=== PATIENT | female | born 1950 | race Caucasian/White ===

== ENCOUNTER → 2016-03-16 | Outpatient (REF) | payer OTHER ==
[~2016-03-16] MED LIST: /FENT75PA; ACCUPRIL20 PO; ACCUPRIL40 PO; ASP81 PO; ASPI81TA3; AUGXR7 PO; CAHNTIXC PO; CALCARB; CALCWAF4; CELEBRE200 PO; CHAN0.5P PO; CLEBREX; COLCHI0.6 PO; CYMBALTA60 PO; DIFLUC150 PO; FOLI1TAB; FURO40TA2; GABA600T3; HABITROL2 TOPICAL; LASIX20 PO; LIDODERM; LIDODERM PATCH; LISI40TA; LISINOPR40 PO; LOVAZA; LOVAZA PO; LYRICA100 PO; LYRICA50 PO; NASONEX NASAL; NEURONTIN3 PO; NEURONTIN6 PO; NIASPAN500 PO; NICODERM TOPICAL; NICODERM14 TOPICAL; OMACOR PO; PLENDIL10 PO; PREMARI0.9 PO; PRIL20CA; PRILOSEC20 PO; RANI150C; SENO8.6T5; SIMV10TA2; SOMA350T; TRAM50TA2; VANCOCIN; VIOXX125 PO; ZANTAC150 PO; ZOCOR10 PO; [UNRECOGNIZED DRUG - OTHER]; centrum silver; feldene; fish oil; flector patch; milk thistle
[2016-03-16 16:03] LABS: ALBUMIN 3.6 GM/DL (3.2-5.2); ALBUMIN/GLOBULIN RATIO 0.95 (1.00-1.93); BILIRUBIN,TOTAL 0.3 MG/DL (0.2-1.0); CALCIUM LEVEL 8.9 MG/DL (8.8-10.2); CREATININE FOR GFR 1.27 MG/DL (0.55-1.02); GLOMERULAR FILTRATION RATE 44.8 (>45); POTASSIUM SERUM 3.9 MEQ/L (3.5-5.1); TOTAL PROTEIN 7.4 GM/DL (6.4-8.2)
== END ==
LOC: M SFHCLACO 09:10
PROVIDERS: ATTEND Physician Assistant
DX: I10 Essential (primary) hypertension (principal); E78.2 Mixed hyperlipidemia; I73.1 Thromboangiitis obliterans [Buerger's disease]; E55.9 Vitamin D deficiency, unspecified

== ENCOUNTER → 2016-09-12 | Outpatient (REF) | payer MEDICARE ==
[2016-09-12 15:32] LABS: ALBUMIN 3.3 GM/DL (3.2-5.2); ALBUMIN/GLOBULIN RATIO 0.89 (1.00-1.93); BILIRUBIN,TOTAL 0.4 MG/DL (0.2-1.0); CALCIUM LEVEL 8.7 MG/DL (8.8-10.2); CREATININE FOR GFR 1.18 MG/DL (0.55-1.02); GLOMERULAR FILTRATION RATE 48.8 (>45); POTASSIUM SERUM 4.4 MEQ/L (3.5-5.1)
== END ==
LOC: M SFHCLACO 09:30
PROVIDERS: ATTEND Physician Assistant
DX: I10 Essential (primary) hypertension (principal); E78.2 Mixed hyperlipidemia; I73.1 Thromboangiitis obliterans [Buerger's disease]; E55.9 Vitamin D deficiency, unspecified

== ENCOUNTER → 2016-10-27 | Outpatient (REF) | payer MEDICARE, MEDICAID ==
[2016-11-07 00:06] LABS: BENZODIAZEPINES, URINE SCREEN Negative ng/mL (Cutoff=200); FENTANYL URINE Positive (.); METHADONE, URINE SCREEN Negative ng/mL (Cutoff=300); OPIATES, URINE Positive ng/mL (Cutoff=300); pH, URINE 4.9 (4.5-8.9)
== END ==
LOC: M SFHCLACO 09:57
PROVIDERS: ATTEND Physician Assistant
DX: Z51.81 Encounter for therapeutic drug level monitoring (principal); F11.90 Opioid use, unspecified, uncomplicated
CPT/HCPCS: 80307; G0463

== ENCOUNTER → 2017-02-22 | Outpatient (REF) | payer MEDICARE ==
[2017-02-22 15:18] LABS: ALBUMIN 3.3 GM/DL (3.2-5.2); ALBUMIN/GLOBULIN RATIO 0.8 (1.00-1.93); BILIRUBIN,TOTAL 0.2 MG/DL (0.2-1.0); CALCIUM LEVEL 8.3 MG/DL (8.8-10.2); CREATININE FOR GFR 1.02 MG/DL (0.55-1.02); GLOMERULAR FILTRATION RATE 57.5 (>45); POTASSIUM SERUM 3.9 MEQ/L (3.5-5.1); TOTAL PROTEIN 7.4 GM/DL (6.4-8.2)
== END ==
LOC: M SFHCLACO 09:05
PROVIDERS: ATTEND Physician Assistant
DX: I10 Essential (primary) hypertension (principal); E78.2 Mixed hyperlipidemia; I73.1 Thromboangiitis obliterans [Buerger's disease]; E55.9 Vitamin D deficiency, unspecified

== ENCOUNTER → 2017-04-24 | Outpatient (REF) | payer MEDICARE ==
[2017-04-24 15:17] LABS: ALBUMIN 3.4 GM/DL (3.2-5.2); ALBUMIN/GLOBULIN RATIO 0.83 (1.00-1.93); ALKALINE PHOSPHATASE 89 U/L (45-117); ALT/SGPT 40 U/L (12-78); ANION GAP 6 MEQ/L (8-16); AST/SGOT 38 U/L (7-37); BILIRUBIN,TOTAL 0.4 MG/DL (0.2-1.0); BLOOD UREA NITROGEN 18 MG/DL (7-18); CALCIUM LEVEL 8.9 MG/DL (8.8-10.2); CARBON DIOXIDE LEVEL 31 MEQ/L (21-32); CHLORIDE LEVEL 103 MEQ/L (98-107); CHOLESTEROL LEVEL 167 MG/DL (<200); CHOLESTEROL RISK RATIO 3.408 (<5); CREATININE FOR GFR 1.29 MG/DL (0.55-1.30); GLOMERULAR FILTRATION RATE 43.9 (>45); GLUCOSE, FASTING 89 MG/DL (70-100); HDL CHOLESTEROL 49 MG/DL (>40); LDL CHOLESTEROL 77.2 MG/DL (<100); NON-HDL-C 118 MG/DL; POTASSIUM SERUM 4.1 MEQ/L (3.5-5.1); SODIUM LEVEL 140 MEQ/L (136-145); TOTAL PROTEIN 7.5 GM/DL (6.4-8.2); TRIGLYCERIDES LEVEL 204 MG/DL (<150)
[2017-04-24 15:23] LABS: TOTAL 25(OH) VITAMIN D 30.1 NG/ML (30.0-100.0)
[2017-04-24 16:02] LABS: MALB URINE SIEMENS 32.4 MG/L; MAU/CREAT RATIO 10.1 MCG/MG (0.0-30.0)
[2017-05-05 14:13] LABS: AMPHETAMINE SCREEN, URINE Negative ng/mL (Cutoff=1000); BARBITURATES SCREEN, URINE Negative ng/mL (Cutoff=200); BENZODIAZEPINES, URINE SCREEN Negative ng/mL (Cutoff=200); CANNABINOID SCREEN, URINE Negative ng/mL (Cutoff=20); COCAINE SCREEN, URINE Negative ng/mL (Cutoff=300); CODEINE, URINE Negative (Cutoff=100); CREATININE, URINE 281.3 mg/dL (20.0-300.0); FENTANYL URINE Positive (.); FENTANYL URINE CONFIRM >90000 pg/mL (Cutoff=500); FENTANYL URINE SCREEN See Final Results pg/mL (Cutoff=2000); FENTANYL/NORFENTANYL Positive (Cutoff=2000); HYDROCODONE CONFIRM, URINE 311 ng/mL (Cutoff=100); HYDROCODONE, URINE Positive (.); HYDROMORPHONE CONFIRM, URINE 156 ng/mL (Cutoff=100); HYDROMORPHONE, URINE Positive (.); METHADONE, URINE SCREEN Negative ng/mL (Cutoff=300); MORPHINE, URINE Negative (Cutoff=100); NORFENTANYL URINE Positive (.); NORFENTANYL URINE CONFIRM >90000 pg/mL (Cutoff=500); OPIATE SCREEN, URINE See Final Results ng/mL (Cutoff=300); OPIATES, URINE Positive ng/mL (Cutoff=300); OXYCODONE, SCREEN, URINE Negative ng/mL (Cutoff=100); PCP SCREEN, URINE Negative ng/mL (Cutoff=25); SPECIFIC GRAVITY, URINE 1.011 (.); pH, URINE 5.3 (4.5-8.9)
== END ==
LOC: M SFHCLACO 09:19
DX: E78.2 Mixed hyperlipidemia (principal); I73.1 Thromboangiitis obliterans [Buerger's disease]; I10 Essential (primary) hypertension; E55.9 Vitamin D deficiency, unspecified; Z79.891 Long term (current) use of opiate analgesic
CPT/HCPCS: 80053

== ENCOUNTER → 2017-09-25 | Outpatient (REF) | payer OTHER, MEDICARE ==
[2017-09-25 15:08] LABS: ALBUMIN 3.5 GM/DL (3.2-5.2); ALBUMIN/GLOBULIN RATIO 0.85 (1.00-1.93); ALKALINE PHOSPHATASE 94 U/L (45-117); ALT/SGPT 35 U/L (12-78); ANION GAP 6 MEQ/L (8-16); AST/SGOT 39 U/L (7-37); BILIRUBIN,TOTAL 0.4 MG/DL (0.2-1.0); BLOOD UREA NITROGEN 25 MG/DL (7-18); CALCIUM LEVEL 8.9 MG/DL (8.8-10.2); CARBON DIOXIDE LEVEL 31 MEQ/L (21-32); CHLORIDE LEVEL 101 MEQ/L (98-107); CHOLESTEROL LEVEL 177 MG/DL (<200); CHOLESTEROL RISK RATIO 3.403 (<5); CREATININE FOR GFR 1.46 MG/DL (0.55-1.30); GLOMERULAR FILTRATION RATE 37.9 (>45); GLUCOSE, FASTING 103 MG/DL (70-100); HDL CHOLESTEROL 52 MG/DL (>40); LDL CHOLESTEROL 89.4 MG/DL (<100); NON-HDL-C 125 MG/DL; POTASSIUM SERUM 4.3 MEQ/L (3.5-5.1); SODIUM LEVEL 138 MEQ/L (136-145); TOTAL PROTEIN 7.6 GM/DL (6.4-8.2); TRIGLYCERIDES LEVEL 178 MG/DL (<150)
[2017-09-25 15:19] LABS: TOTAL 25(OH) VITAMIN D 54.4 NG/ML (30.0-100.0)
== END ==
LOC: M SFHCLACO 09:41
DX: E78.2 Mixed hyperlipidemia (principal); I73.1 Thromboangiitis obliterans [Buerger's disease]; I10 Essential (primary) hypertension; E55.9 Vitamin D deficiency, unspecified; F11.90 Opioid use, unspecified, uncomplicated; Z79.899 Other long term (current) drug therapy
CPT/HCPCS: 80053

== ENCOUNTER → 2020-08-05 | Outpatient (REF) | payer OTHER ==
[~2020-08-05] MED LIST changes: -/FENT75PA; +FENT1DIS16
[2020-08-05 13:34] LABS: BASO # 0.1 10^3/uL (0.0-0.2); BASO % 0.7 % (0.0-1.0); EOS # 0.1 10^3/uL (0.0-0.5); EOS % 1.6 % (0.0-3.0); HEMATOCRIT 40.4 % (36.0-47.0); HEMOGLOBIN 12.4 g/dl (12.0-15.5); LYMPH # 1.8 10^3/uL (1.5-5.0); LYMPH % 20.4 % (24.0-44.0); MEAN CORPUSCULAR HEMOGLOBIN 28.3 pg (27.0-33.0); MEAN CORPUSCULAR HGB CONC 30.7 g/dl (32.0-36.5); MEAN CORPUSCULAR VOLUME 92.2 fl (80.0-96.0); MONO # 0.7 10^3/uL (0.0-0.8); MONO % 8.2 % (2.0-8.0); NEUTROPHILS % 68.8 % (36.0-66.0); PLATELET COUNT, AUTOMATED 257 10^3/uL (150-450); RED BLOOD COUNT 4.38 10^6/uL (4.00-5.40); WHITE BLOOD COUNT 8.7 10^3/uL (4.0-10.0)
[2020-08-05 13:44] LABS: INR 1.51; PROTHROMBIN TIME 18.5 SECONDS (12.5-14.3)
[2020-08-05 13:45] LABS: PARTIAL THROMBOPLASTIN TIME 40.1 SECONDS (24.2-38.5)
[2020-08-05 14:03] LABS: ALBUMIN 3.4 GM/DL (3.2-5.2); BILIRUBIN,TOTAL 0.4 MG/DL (0.2-1.0); CALCIUM LEVEL 9.2 MG/DL (8.8-10.2); CREATININE FOR GFR 1.04 MG/DL (0.55-1.30); FREE T4 0.98 NG/DL (0.76-1.46); GLOMERULAR FILTRATION RATE 55.8 (>39); POTASSIUM SERUM 4.2 MEQ/L (3.5-5.1); THYROID STIMULATING HORMONE 0.811 uIU/ML (0.358-3.740); TOTAL PROTEIN 7.1 GM/DL (6.4-8.2)
[2020-08-05 14:28] LABS: HEMOGLOBIN A1c 5.3 %
== END ==
LOC: M SFHCPLAZ 11:21
PROVIDERS: ATTEND Family Medicine
DX: D68.51 Activated protein C resistance (principal); I11.0 Hypertensive heart disease with heart failure; D50.9 Iron deficiency anemia, unspecified; Z86.718 Personal history of other venous thrombosis and embolism; I50.9 Heart failure, unspecified; Z79.899 Other long term (current) drug therapy
CPT/HCPCS: 36415; 80053; 80307; 82728; 83036; 83880; 84439; 84443; 85025; 85610; 85730; 93005; G0463

== ENCOUNTER → 2020-09-20 | Outpatient (REF) | payer OTHER ==
[~2020-09-20] MED LIST changes: +ASPI81TA26 PO; +CARI1TAB7 PO; +CENT1TAB PO; +FISH1000 PO; +FOLI1TAB11 PO; +FURO40TA2 PO; +LISI40TA4 PO; +MILK140C PO; +NEUR600T PO
[2020-09-20 13:01] LABS: BASO # 0.1 10^3/uL (0.0-0.2); BASO % 0.6 % (0.0-1.0); EOS # 0.3 10^3/uL (0.0-0.5); EOS % 2.4 % (0.0-3.0); HEMATOCRIT 43.8 % (36.0-47.0); HEMOGLOBIN 13.5 g/dl (12.0-15.5); LYMPH # 3.4 10^3/uL (1.5-5.0); LYMPH % 27.7 % (24.0-44.0); MEAN CORPUSCULAR HEMOGLOBIN 28.2 pg (27.0-33.0); MEAN CORPUSCULAR HGB CONC 30.8 g/dl (32.0-36.5); MEAN CORPUSCULAR VOLUME 91.6 fl (80.0-96.0); MONO # 1.1 10^3/uL (0.0-0.8); MONO % 8.8 % (2.0-8.0); NEUTROPHILS # 7.3 10^3/uL (1.5-8.5); NEUTROPHILS % 59.8 % (36.0-66.0); PLATELET COUNT, AUTOMATED 346 10^3/uL (150-450); RED BLOOD COUNT 4.78 10^6/uL (4.00-5.40); WHITE BLOOD COUNT 12.2 10^3/uL (4.0-10.0)
[2020-09-20 13:42] LABS: ALBUMIN 3.5 GM/DL (3.2-5.2); BILIRUBIN,TOTAL 0.3 MG/DL (0.2-1.0); CALCIUM LEVEL 9.5 MG/DL (8.8-10.2); CREATININE FOR GFR 1.78 MG/DL (0.55-1.30); POTASSIUM SERUM 3.6 MEQ/L (3.5-5.1); THYROID STIMULATING HORMONE 1.97 uIU/ML (0.358-3.740); TOTAL PROTEIN 7.7 GM/DL (6.4-8.2)
== END ==
LOC: M SFHCADAM 10:06
PROVIDERS: ATTEND Family Medicine
DX: R63.4 Abnormal weight loss (principal); K30 Functional dyspepsia

== ENCOUNTER → 2020-09-20 | Outpatient (CLI) | payer OTHER ==
--- NOTE | 2020-09-20 11:49 | REP ---
INDICATION: UNINTENTIONAL WEIGHT LOSS. COMPARISON: Comparison chest x-ray June 29, 2009. TECHNIQUE: Two views.. FINDINGS: The lungs are well inflated and free of infiltrate. The pleural angles are sharp. The heart size is normal. Pulmonary vasculature is not increased. No significant bony abnormality is seen. There are surgical clips in the right upper quadrant of the abdomen. IMPRESSION: No active disease.. <Electronically signed by Telly Vargas > 09/20/20 [id number]
== END ==
LOC: M ADAMS 10:06
PROVIDERS: ATTEND Family Medicine
DX: R63.4 Abnormal weight loss (principal); K30 Functional dyspepsia

== ENCOUNTER 2020-09-21 12:49 | Emergency (ER) | payer OTHER, MEDICAID ==
[~2020-09-21] VITALS: Ht 172.7 cm; Wt 115.9 kg
[~2020-09-21 12:49] MED LIST changes: -ASPI81TA26 PO; -CARI1TAB7 PO; -CENT1TAB PO; -FISH1000 PO; -FOLI1TAB11 PO; -FURO40TA2 PO; -LISI40TA4 PO; -MILK140C PO; -NEUR600T PO
[2020-09-21] MEDS ORDERED: FURO40TA2 PO (15:43)
[2020-09-21] MEDS ORDERED: CENT1TAB PO (15:43)
[2020-09-21] MEDS ORDERED: FISH1000 PO (15:43)
[2020-09-21] MEDS ORDERED: ASPI81TA26 PO (15:43)
[2020-09-21] MEDS ORDERED: FOLI1TAB11 PO (15:43)
[2020-09-21] MEDS ORDERED: NEUR600T PO (15:43)
[2020-09-21] MEDS ORDERED: CARI1TAB7 PO (15:43)
[2020-09-21] MEDS ORDERED: MILK140C PO (15:43)
[2020-09-21] MEDS ORDERED: LISI40TA4 PO (15:43)
[2020-09-21] MEDS ORDERED: ACETAMINOPHEN 325 MG TAB PO ONE (15:50)
[2020-09-21 16:48] LABS: CALCIUM LEVEL 9.3 MG/DL (8.8-10.2); CREATININE FOR GFR 1.77 MG/DL (0.55-1.30); GLOMERULAR FILTRATION RATE 30.2 (>39); POTASSIUM SERUM 4.1 MEQ/L (3.5-5.1)
[2020-09-21 18:14] VITALS: BP 160/86
== END 2020-09-21 18:15 | disposition home or self-care (01) ==
LOC: M ED 12:49
DX: I12.9 Hypertensive chronic kidney disease with stage 1 through stage 4 chronic kidney disease, or unspecified chronic kidney disease (principal); E78.5 Hyperlipidemia, unspecified; K21.9 Gastro-esophageal reflux disease without esophagitis; Z86.718 Personal history of other venous thrombosis and embolism; Z87.891 Personal history of nicotine dependence; Z88.6 Allergy status to analgesic agent; Z79.899 Other long term (current) drug therapy

== ENCOUNTER 2020-09-29 10:44 | Inpatient (IN) | payer OTHER, MEDICAID ==
[~2020-09-29] VITALS: Ht 167.6 cm; Wt 121.9 kg
[~2020-09-29 10:44] MED LIST changes: +ASPI81TA26 PO; +CARI1TAB7 PO; +CENT1TAB PO; +FISH1000 PO; +FOLI1TAB11 PO; +FURO40TA2 PO; +LISI40TA4 PO; +MILK140C PO; +NEUR600T PO
[2020-09-29 11:42] LABS: BASO % 0.4 % (0.0-1.0); EOS % 0.3 % (0.0-3.0); HEMATOCRIT 40.9 % (36.0-47.0); HEMOGLOBIN 13.3 g/dl (12.0-15.5); LYMPH # 1.8 10^3/uL (1.5-5.0); LYMPH % 19.5 % (24.0-44.0); MEAN CORPUSCULAR HEMOGLOBIN 28.4 pg (27.0-33.0); MEAN CORPUSCULAR HGB CONC 32.5 g/dl (32.0-36.5); MEAN CORPUSCULAR VOLUME 87.2 fl (80.0-96.0); MONO # 0.8 10^3/uL (0.0-0.8); MONO % 8.1 % (2.0-8.0); NEUTROPHILS # 6.7 10^3/uL (1.5-8.5); NEUTROPHILS % 71.4 % (36.0-66.0); PLATELET COUNT, AUTOMATED 277 10^3/uL (150-450); RED BLOOD COUNT 4.69 10^6/uL (4.00-5.40); WHITE BLOOD COUNT 9.5 10^3/uL (4.0-10.0)
[2020-09-29 12:11] LABS: ALBUMIN 3.6 GM/DL (3.2-5.2); BILIRUBIN,DIRECT 0.1 MG/DL (0.0-0.2); BILIRUBIN,TOTAL 0.4 MG/DL (0.2-1.0); CALCIUM LEVEL 9.6 MG/DL (8.8-10.2); CREATININE FOR GFR 1.59 MG/DL (0.55-1.30); GLOMERULAR FILTRATION RATE 34.1 (>39); POTASSIUM SERUM 3.3 MEQ/L (3.5-5.1); TOTAL PROTEIN 7.5 GM/DL (6.4-8.2)
[2020-09-29] MEDS ORDERED: hydrALAZINE 20MG/ML 1ML VIAL (J0360 PER 20MG) IV ONE (13:15)
[2020-09-29] MEDS ORDERED: FERR1TAB8 PO (14:09)
[2020-09-29] MEDS ORDERED: FOLI400T13 PO (14:09)
[2020-09-29] MEDS ORDERED: CHOL4POW4 PO (14:09)
[2020-09-29] MEDS ORDERED: FURO20TA2 PO (14:09)
[2020-09-29] MEDS ORDERED: ALLO10TA PO (14:09)
[2020-09-29] MEDS ORDERED: POTA1TAB14 PO (14:09)
[2020-09-29] MEDS ORDERED: SLOWTAB2 PO (14:09)
[2020-09-29] MEDS ORDERED: CALCTAB41 PO (14:09)
[2020-09-29] MEDS ORDERED: XARE15TA PO (14:09)
[2020-09-29] MEDS ORDERED: HOME MED LIST COMPLETE! XX SCH (14:10)
[2020-09-29 14:31] LABS: RSV AMPLIFICATION NEGATIVE (NEGATIVE)
[2020-09-29] MEDS ORDERED: GI COCKTAIL 50ML BTL(HYOSCYAMINE/MAALOX/LIDOCAINE VISCOUS)(1:3:1) PO ONE (14:35)
[2020-09-29] MEDS ORDERED: ONDANSETRON 4MG/2ML VIAL IV PRN (14:50)
[2020-09-29] MEDS ORDERED: diphenhydrAMINE 50MG/ML VIAL (J1200) IV ONE (15:40)
[2020-09-29] MEDS ORDERED: METOCLOPRAMIDE INJ 10MG/2ML VIAL (J2765 PER 1) IV ONE (15:40)
[2020-09-29] MEDS ORDERED: ACETAMINOPHEN 325 MG TAB PO ONE (16:00)
[2020-09-29] MEDS: GABAPENTIN 300 MG CAP PO SCH ×2 (19:16→21:00)
[2020-09-29] MEDS: PANTOPRAZOLE 40MG VIAL (C9113 PER 1) IV SCH (19:17)
[2020-09-29] MEDS ORDERED: FERROUS SULFATE 325MG TAB PO SCH (21:00)
[2020-09-29 21:22] VITALS: BP 120/66
[2020-09-29] MEDS: RIVAROXABAN 15 MG TAB (XARELTO) PO SCH (22:19)
[2020-09-29] MEDS: FIORICET TAB PO PRN (23:17)
[2020-09-30 06:00] VITALS: BP 117/67
[2020-09-30] MEDS: GABAPENTIN 300 MG CAP PO SCH ×3 (07:47→20:33)
[2020-09-30] MEDS: FIORICET TAB PO PRN ×2 (07:47→18:25)
[2020-09-30] MEDS: allopurinoL 100 MG TAB PO SCH (07:48)
[2020-09-30] MEDS: ASPIRIN 81MG ENTERIC TABLET PO SCH (07:48)
[2020-09-30] MEDS ORDERED: lisinopriL 40 MG TAB PO SCH ×2 (09:00)
[2020-09-30 09:13] LABS: CALCIUM LEVEL 9.1 MG/DL (8.8-10.2); CREATININE FOR GFR 2.32 MG/DL (0.55-1.30); POTASSIUM SERUM 3.1 MEQ/L (3.5-5.1)
[2020-09-30] MEDS ORDERED: E-Z-HD 98% w/w 340GM SUSP BTL As Ordered ONE (10:50)
[2020-09-30] MEDS ORDERED: E-Z-PAQUE 96% w/w SUSP 176GM BTL As Ordered ONE (10:50)
[2020-09-30] MEDS ORDERED: E-Z-GAS II EFFERVESCENT PACKET (SODIUM BICARB./CITRIC ACID/SIMETHICONE) As Ordered ONE (10:50)
[2020-09-30] MEDS ORDERED: NS 1,000 ML IV ONE ×2 (13:10→20:40)
[2020-09-30 14:00] VITALS: BP 113/85
[2020-09-30] MEDS: PANTOPRAZOLE 40MG VIAL (C9113 PER 1) IV SCH (18:26)
[2020-09-30 19:31] VITALS: BP 90/46
[2020-09-30] MEDS ORDERED: NS 500 ML IV ONE (19:35)
[2020-09-30 20:24] VITALS: BP 72/42
[2020-09-30] MEDS: POTASSIUM CHLORIDE 10% LIQ 20 MEQ/15 ML UDC PO SCH ×2 (21:27→23:31)
[2020-09-30] MEDS: RIVAROXABAN 15 MG TAB (XARELTO) PO SCH (21:27)
[2020-09-30 21:35] VITALS: BP 100/48
[2020-09-30 22:10] LABS: AMORPHOUS SEDIMENT SMALL (NEGATIVE); APPEARANCE, URINE CLOUDY (CLEAR); BACTERIA, URINE AUTO NEGATIVE (NEGATIVE); BILIRUBIN, URINE AUTO NEGATIVE (NEGATIVE); BLOOD, URINE BLOOD 2+ (NEGATIVE); COLOR, URINE YELLOW (YELLOW); GLUCOSE, URINE (UA) AUTO NEGATIVE (NEGATIVE); KETONE, URINE AUTO NEGATIVE (NEGATIVE); LEUKOCYTE ESTERASE, URINE AUTO 3+ (NEGATIVE); MUCUS, URINE SMALL (NEGATIVE); NITRITE, URINE AUTO NEGATIVE (NEGATIVE); PROTEIN, URINE AUTO NEGATIVE (NEGATIVE); RBC, URINE AUTO 14 /HPF (0-3); SPECIFIC GRAVITY URINE AUTO 1.017 (1.002-1.035); SQUAMOUS EPITHELIAL CELL UR AU 4 /HPF (0-6); TRANSITIONAL EPITHELIAL AUTO 4 /HPF; UROBILINOGEN, URINE AUTO 0.2 mg/dL (0.0-2.0); WBC, URINE AUTO 53 /HPF (0-3)
[2020-10-01 01:15] VITALS: BP 128/56
[2020-10-01] MEDS ORDERED: NITROGLYCERIN 0.4 MG SUBL TABLET SL STA (01:15)
[2020-10-01] MEDS: FIORICET TAB PO PRN ×2 (02:02→12:04)
[2020-10-01] MEDS ORDERED: ASPIRIN 81 MG CHEW TABLET PO ONE (04:35)
[2020-10-01 06:00] VITALS: BP 114/63
[2020-10-01 06:21] LABS: MAGNESIUM LEVEL 2.2 MG/DL (1.8-2.4)
[2020-10-01] MEDS: allopurinoL 100 MG TAB PO SCH (08:18)
[2020-10-01] MEDS: ASPIRIN 81MG ENTERIC TABLET PO SCH (08:18)
[2020-10-01] MEDS: GABAPENTIN 300 MG CAP PO SCH ×3 (08:18→20:52)
[2020-10-01 08:50] LABS: CALCIUM LEVEL 8.7 MG/DL (8.8-10.2); CREATININE FOR GFR 1.86 MG/DL (0.55-1.30); GLOMERULAR FILTRATION RATE 28.4 (>39); POTASSIUM SERUM 3.9 MEQ/L (3.5-5.1)
[2020-10-01] MEDS ORDERED: NS 1,000 ML IV ONE (11:30)
[2020-10-01 14:00] VITALS: BP 133/68
[2020-10-01] MEDS: PANTOPRAZOLE 40MG VIAL (C9113 PER 1) IV SCH (18:11)
[2020-10-01] MEDS: RIVAROXABAN 15 MG TAB (XARELTO) PO SCH (20:52)
[2020-10-01] MEDS: ACETAMINOPHEN TAB 650MG DOSE (2X325MG) PO PRN (20:53)
[2020-10-01] MEDS: FLUTICASONE PROP 0.05% NASAL SPRAY 16 GM (FLONASE) NARES SCH (20:53)
[2020-10-01 22:00] VITALS: BP 124/67
[2020-10-02] MEDS: ACETAMINOPHEN TAB 650MG DOSE (2X325MG) PO PRN ×2 (03:34→11:08)
[2020-10-02 06:00] VITALS: BP 143/67
[2020-10-02 06:59] LABS: BASO % 0.6 % (0.0-1.0); EOS # 0.2 10^3/uL (0.0-0.5); EOS % 3.7 % (0.0-3.0); HEMATOCRIT 33.7 % (36.0-47.0); HEMOGLOBIN 10.4 g/dl (12.0-15.5); LYMPH # 2.2 10^3/uL (1.5-5.0); LYMPH % 35.6 % (24.0-44.0); MEAN CORPUSCULAR HEMOGLOBIN 28.1 pg (27.0-33.0); MEAN CORPUSCULAR HGB CONC 30.9 g/dl (32.0-36.5); MEAN CORPUSCULAR VOLUME 91.1 fl (80.0-96.0); MONO # 0.7 10^3/uL (0.0-0.8); MONO % 11.4 % (2.0-8.0); NEUTROPHILS % 48.4 % (36.0-66.0); PLATELET COUNT, AUTOMATED 173 10^3/uL (150-450); WHITE BLOOD COUNT 6.2 10^3/uL (4.0-10.0)
[2020-10-02 07:35] LABS: CALCIUM LEVEL 8.8 MG/DL (8.8-10.2); CREATININE FOR GFR 1.19 MG/DL (0.55-1.30); GLOMERULAR FILTRATION RATE 47.6 (>39); POTASSIUM SERUM 4.4 MEQ/L (3.5-5.1)
[2020-10-02] MEDS: GABAPENTIN 300 MG CAP PO SCH (09:00)
[2020-10-02 09:03] VITALS: BP 134/69
[2020-10-02] MEDS: allopurinoL 100 MG TAB PO SCH (09:03)
[2020-10-02] MEDS: ASPIRIN 81MG ENTERIC TABLET PO SCH (09:03)
[2020-10-02] MEDS: FLUTICASONE PROP 0.05% NASAL SPRAY 16 GM (FLONASE) NARES SCH (09:04)
[2020-10-02] MEDS ORDERED: FURO20TA2 PO (10:35)
== END 2020-10-02 14:07 | disposition home or self-care (01) | DRG 305 ==
LOC: M ED 10:44 → EDBD 10:44 → M ED INP 10:45 → M MSPAV 21:22 → OBSVTOIN 10-01 14:09
PROVIDERS: ADMIT Internal Medicine Nephrology; ATTEND Internal Medicine Nephrology
DX: I16.0 Hypertensive urgency (principal); N17.9 Acute kidney failure, unspecified; J96.10 Chronic respiratory failure, unspecified whether with hypoxia or hypercapnia; Z68.41 Body mass index [BMI] 40.0-44.9, adult; R11.2 Nausea with vomiting, unspecified; I10 Essential (primary) hypertension; E78.5 Hyperlipidemia, unspecified; R07.89 Other chest pain; I73.1 Thromboangiitis obliterans [Buerger's disease]; K21.9 Gastro-esophageal reflux disease without esophagitis; K57.50 Diverticulosis of both small and large intestine without perforation or abscess without bleeding; K22.8 Other specified diseases of esophagus; M81.0 Age-related osteoporosis without current pathological fracture; E66.01 Morbid (severe) obesity due to excess calories; G62.89 Other specified polyneuropathies; G43.909 Migraine, unspecified, not intractable, without status migrainosus; R19.7 Diarrhea, unspecified; Z86.718 Personal history of other venous thrombosis and embolism; Z86.711 Personal history of pulmonary embolism; Z79.82 Long term (current) use of aspirin; Z79.899 Other long term (current) drug therapy; Z79.01 Long term (current) use of anticoagulants; Z88.5 Allergy status to narcotic agent; Z20.822 Contact with and (suspected) exposure to COVID-19; Z91.018 Allergy to other foods

== ENCOUNTER → 2020-10-26 | Outpatient (REF) | payer OTHER ==
[~2020-10-26] MED LIST changes: +ALLO10TA PO; +CALCTAB41 PO; +CHOL4POW4 PO; +FERR1TAB8 PO; +FOLI400T13 PO; +FURO20TA2 PO; +POTA1TAB14 PO; +SLOWTAB2 PO; +XARE15TA PO
[2020-10-26 15:30] LABS: HEMOGLOBIN 13.5 g/dl (12.0-15.5); MEAN CORPUSCULAR HEMOGLOBIN 28.5 pg (27.0-33.0); MEAN CORPUSCULAR HGB CONC 32.1 g/dl (32.0-36.5); MEAN CORPUSCULAR VOLUME 88.8 fl (80.0-96.0); PLATELET COUNT, AUTOMATED 325 10^3/uL (150-450); RED BLOOD COUNT 4.73 10^6/uL (4.00-5.40)
[2020-10-26 15:57] LABS: ALBUMIN 3.2 GM/DL (3.2-5.2); BILIRUBIN,TOTAL 0.3 MG/DL (0.2-1.0); CALCIUM LEVEL 9.9 MG/DL (8.8-10.2); CHOLESTEROL RISK RATIO 3.769 (<5); CREATININE FOR GFR 1.5 MG/DL (0.55-1.30); GLOMERULAR FILTRATION RATE 36.4 (>39); POTASSIUM SERUM 4.4 MEQ/L (3.5-5.1); TOTAL PROTEIN 7.3 GM/DL (6.4-8.2)
[2020-10-26 16:05] LABS: TOTAL 25(OH) VITAMIN D 40.3 NG/ML (30.0-100.0)
== END ==
LOC: M SFHCADAM 13:43
PROVIDERS: ATTEND Physician Assistant
DX: I73.1 Thromboangiitis obliterans [Buerger's disease] (principal); I10 Essential (primary) hypertension; E78.2 Mixed hyperlipidemia; E55.9 Vitamin D deficiency, unspecified

== ENCOUNTER → 2021-08-05 | Outpatient (CLI) | payer OTHER ==
[~2021-08-05] MED LIST changes: +CHOL4POW15 PO; -CHOL4POW4 PO
== END ==
LOC: M PLAIMG 09:29
PROVIDERS: ATTEND Physician Assistant
DX: R29.898 Other symptoms and signs involving the musculoskeletal system (principal); R26.89 Other abnormalities of gait and mobility; Z82.0 Family history of epilepsy and other diseases of the nervous system; Z53.9 Procedure and treatment not carried out, unspecified reason